=== PATIENT | female | born 1995 ===

== ENCOUNTER 2017-01-09 13:16 | Emergency (ER) | payer OTHER ==
[2017-01-09 13:16] VITALS: BMI 35.5
[2017-01-09] MEDS ORDERED: Sodium Chloride 0.9% 1,000 ML IV STA (14:37)
--- NOTE | 2017-01-09 14:55 | ED PDOC ---
HPI: Abdomen Time Seen by Provider: 01/09/17 14:19 Chief Complaint (Nursing): Abdominal Pain Chief Complaint (Provider): Abdominal Pain History Per: Patient History/Exam Limitations: no limitations Onset/Duration Of Symptoms: Days (x4) Associated Symptoms: Nausea, Back Pain, Other (Stomach Pain x1 week) Additional Complaint(s): Mayda Dacosta is a 21 year old female, with no past medical history, who presents to the emergency department complaining of abdominal pain onset for 4 days associated with stomach pain, and nausea. She states she was seen at [facility] and was given zofran and ranitidine last week for her stomach pain which improved her condition. She reports a surgical history of a section. She denies further medical complaints. PMD: None provided Past Medical History Reviewed: Historical Data, Nursing Documentation, Vital Signs Vital Signs: Last Vital Signs Temp 97.6 F 01/09/17 17:28 Pulse 78 01/09/17 17:28 Resp 19 01/09/17 17:28 BP 128/76 01/09/17 17:28 Pulse Ox 98 01/09/17 17:28 - Medical History PMH: Denies: Depression - Surgical History Surgical History: - Family History Family History: States: Unknown Family Hx - Immunization History Hx Tetanus Toxoid Vaccination: No Hx Influenza Vaccination: No Hx Pneumococcal Vaccination: No - Home Medications Home Medications: Ambulatory Orders Medication Instructions Recorded Pnv No.95/Ferrous Fum/Folic AC 1 tab PO DAILY 06/02/16 [ Vitamin Tablet] - Allergies Allergies/Adverse Reactions: Allergies Allergy/AdvReac Type Severity Reaction Status Date / Time No Known Allergies Allergy Verified 01/28/13 21:46 Review of Systems ROS Statement: Except As Marked, All Systems Reviewed And Found Negative Gastrointestinal: Positive for: Nausea, Abdominal Pain Musculoskeletal: Positive for: Back Pain Physical Exam - Reviewed Nursing Documentation Reviewed: Yes Vital Signs Reviewed: Yes - Physical Exam Appears: Positive for: Well, Non-toxic, No Acute Distress Head Exam: Positive for: ATRAUMATIC, NORMAL INSPECTION, NORMOCEPHALIC Skin: Positive for: Normal Color, Warm, Dry Eye Exam: Positive for: EOMI, Normal appearance, PERRL ENT: Positive for: Normal ENT Inspection Neck: Positive for: Normal, Painless ROM, Supple Cardiovascular/Chest: Positive for: Regular Rate, Rhythm Respiratory: Positive for: CNT, Normal Breath Sounds Gastrointestinal/Abdominal: Positive for: Normal Exam, Bowel Sounds, Soft Extremity: Positive for: Normal ROM Neurologic/Psych: Positive for: Alert, Oriented - Laboratory Results Result Diagrams: 01/09/17 14:00 01/09/17 14:00 - ECG O2 Sat by Pulse Oximetry: 99 (RA) Pulse Ox Interpretation: Normal - Progress Condition: Improved Medical Decision Making Medical Decision Making: Initial Impression: Gastritis Initial Plan: --Comp Metabolic Panel --Lipase --Urine Dipstick --Urine --CBC w/ differential --Reglan 10mg IVP --NS IV 1,000 mls/hr --reevaluation Scribe Attestation: Documented by Melvin Sarah, acting as a scribe for La Nena Rod MD. Provider Scribe Attestation: All medical record entries made by the Scribe were at my direction and personally dictated by me. I have reviewed the chart and agree that the record accurately reflects my personal performance of the history, physical exam, medical decision making, and the department course for this patient. I have also personally directed, reviewed, and agree with the discharge instructions and disposition. Disposition - Clinical Impression Clinical Impression: Gastritis - Disposition Referrals: Jeffery Byrnes MD, PhD [Staff Provider] - Disposition: Routine/Home Disposition Time: 16:49 Condition: STABLE Instructions: Gastritis (ED) Forms: [employer] (Turkish)
[2017-01-09 15:07] LABS: BASO # 0.1 K/uL (0.0-0.2); BASO % 0.7 % (0.0-2.0); EOS # 0.3 K/uL (0.0-0.7); EOS % 2.6 % (0.0-4.0); HEMATOCRIT 41.2 % (34.0-47.0); LYMPH # 2.1 K/uL (1.0-4.3); LYMPH % 22.5 % (20.0-40.0); MEAN CORPUSCULAR HGB CONC 34.1 g/dL (33.0-37.0); MEAN PLATELET VOLUME 9.4 fl (7.2-11.7); MONO # 0.4 K/uL (0.0-0.8); MONO % 4.4 % (0.0-10.0); NEUT # 6.6 K/uL (1.8-7.0); NEUT % 69.8 % (50.0-75.0); NRBC % 0.2 % (0.0-0.0); RED CELL DISTRIBUTION WIDTH 14.4 % (11.5-14.5); WHITE BLOOD COUNT 9.5 K/uL (4.8-10.8)
[2017-01-09 15:09] LABS: MEAN CELL VOLUME 87.9 fl (81.0-99.0)
[2017-01-09 15:30] LABS: ALB/GLOB RATIO 1.5 (1.0-2.1); ALKALINE PHOSPHATASE 101 U/L (38-126); ALT/SGPT 42 U/L (9-52); AST/SGOT 20 U/L (14-36); BILIRUBIN,TOTAL 0.4 mg/dl (0.2-1.3); BLOOD UREA NITROGEN 12 mg/dl (7-17); CALCIUM 9.6 mg/dL (8.4-10.2); CARBON DIOXIDE 22 mmol/L (22-30); CHLORIDE 104 mmol/L (98-107); GFR AFRICAN-AMERICAN > 60; GLUCOSE,RANDOM 92 mg/dL (65-105); LIPASE 73 U/L (23-300); POTASSIUM 4.1 MMOL/L (3.6-5.0); SODIUM 138 mmol/l (132-148); TOTAL PROTEIN 7.8 G/DL (6.3-8.2)
[2017-01-09 17:29] VITALS: BP 128/76; PULSE 78; RESP 19; TEMP 97.6
[2017-01-10 12:40] VITALS: O2SAT 99
== END 2017-01-09 17:29 | disposition home or self-care (01) ==
LOC: H.ER 13:16
DX: K29.70 Gastritis, unspecified, without bleeding (principal)